=== PATIENT | female | born 1950 | race Caucasian/White ===

== ENCOUNTER → 2023-12-30 10:52 | Outpatient (REF) | payer MEDICARE, BC, SELFPAY | LOC: HWRAD 10:52 | PROVIDERS: ATTENDING PHYSICIAN Surgery; FAMILY PHYSICIAN Internal Medicine | DX: K40.90 Unilateral inguinal hernia, without obstruction or gangrene, not specified as recurrent (principal); R19.09 Other intra-abdominal and pelvic swelling, mass and lump | CPT/HCPCS: 76882 ==